=== PATIENT | female | born 1990 | race Caucasian/White ===

== ENCOUNTER 2017-04-12 09:02 | Emergency (ER) | payer MEDICAID ==
[2017-04-12] MEDS ORDERED: ACETAMINOPHEN 325 MG TABLET PO ONE (09:30)
[2017-04-12] MEDS ORDERED: ACETAMINOPHEN 325 MG TABLET ONE (10:22)
[2017-04-12 10:25] VITALS: BP 113/65
== END 2017-04-12 10:58 | disposition home or self-care (01) ==
LOC: ED 10:00
DX: O26.892 Other specified pregnancy related conditions, second trimester (principal); Z3A.24 24 weeks gestation of pregnancy; R07.89 Other chest pain; J45.909 Unspecified asthma, uncomplicated; O99.512 Diseases of the respiratory system complicating pregnancy, second trimester
CPT/HCPCS: 71010; 93005; 99284

== ENCOUNTER 2017-07-10 12:06 | Outpatient (CLI) | payer MEDICAID ==
[~2017-07-10] VITALS: Ht 154.9 cm; Wt 84.5 kg
[2017-07-10 12:34] VITALS: BP 123/70
== END 2017-07-10 14:40 | disposition home or self-care (01) ==
LOC: LDOP 12:06
PROVIDERS: ATTEND Student in an Organized Health Care Education/Training Program
DX: O36.5930 Maternal care for other known or suspected poor fetal growth, third trimester, not applicable or unspecified (principal); O32.1XX0 Maternal care for breech presentation, not applicable or unspecified; O99.333 Smoking (tobacco) complicating pregnancy, third trimester; F17.200 Nicotine dependence, unspecified, uncomplicated; Z3A.38 38 weeks gestation of pregnancy
CPT/HCPCS: 59025; 76805; 99201; G0463

== ENCOUNTER 2017-07-17 09:56 | Inpatient (IN) | payer MEDICAID ==
[~2017-07-17] VITALS: Ht 154.9 cm; Wt 84.5 kg
[2017-07-17] MEDS ORDERED: LACTATED RINGERS 1,000 ML IVBOLUS ONE (10:00)
[2017-07-17] MEDS ORDERED: SODIUM CITRATE/CITRIC ACID 30 ML UDC PO ONE (10:00)
[2017-07-17] MEDS ORDERED: METOCLOPRAMIDE 5 MG/ML, 2ML IV ONE (10:00)
[2017-07-17 10:06] VITALS: BP 133/72
[2017-07-17] MEDS ORDERED: PREN-3 PO (10:24)
[2017-07-17] MEDS ORDERED: FLU VACC QS2017-18 (36MOS+) UP/PF 0.5 ML IM-VACC ONE (10:30)
[2017-07-17] MEDS ORDERED: NEWBORN KIT ONE (10:46)
[2017-07-17 11:11] LABS: HEMATOCRIT 37.8 % (34.6-47.8); HEMOGLOBIN 12.8 g/dL (11.7-16.4)
[2017-07-17] MEDS: LACTATED RINGERS 1,000 ML IV SCH ×8 (11:21→22:20)
[2017-07-17] MEDS ORDERED: OXYTOCIN 30U/ 0.9% NaCL 500ML 500 ML ONE (11:46)
[2017-07-17] MEDS ORDERED: METOCLOPRAMIDE 5 MG/ML, 2ML ONE ×2 (11:46→12:19)
[2017-07-17] MEDS ORDERED: SODIUM CITRATE/CITRIC ACID 30 ML UDC ONE ×2 (11:46→12:19)
[2017-07-17] MEDS ORDERED: MEPERIDINE/PF 25MG/0.5ML IVPush PRN (12:00)
[2017-07-17] MEDS ORDERED: ONDANSETRON 2MG/ML, 2ML IVPush PRN (12:00)
[2017-07-17] MEDS ORDERED: OXYcodone 5 MG/5 ML ORAL.SOL UDC PO PRN (12:00)
[2017-07-17] MEDS ORDERED: EPHEDRINE 50 MG/ML, 1ML IVPush PRN (12:00)
[2017-07-17] MEDS ORDERED: MIDAZOLAM 1 MG/ML, 2ML IV PRN (12:00)
[2017-07-17] MEDS ORDERED: FENTANYL PF 100 MCG/2ML IV PRN (12:00)
[2017-07-17] MEDS ORDERED: LIDOCAINE 1%, 20ML ONE (12:19)
[2017-07-17] MEDS ORDERED: CEFAZOLIN 1,000 MG ONE (12:19)
[2017-07-17] MEDS: OXYTOCIN 30U/ 0.9% NaCL 500ML 500 ML IV SCH ×4 (12:20→22:20)
[2017-07-17] MEDS ORDERED: CARBOPROST TROMETHAMINE 250 MCG/ML, 1ML IM PRN (12:30)
[2017-07-17] MEDS ORDERED: OXYcodone/APAP 5/325MG TABLET PO PRN (12:30)
[2017-07-17] MEDS: KETOROLAC 30 MG/1 ML IV SCH ×2 (12:30→18:30)
[2017-07-17] MEDS ORDERED: SIMETHICONE 80 MG CHEW TAB PO PRN (12:30)
[2017-07-17] MEDS ORDERED: METHYLERGONOVINE 0.2 MG/ML IM PRN (12:30)
[2017-07-17] MEDS ORDERED: CALCIUM CARBONATE 500 MG TAB.CHEW PO PRN (12:30)
[2017-07-17] MEDS ORDERED: MISOPROSTOL 200 MCG TABLET PR PRN (12:30)
[2017-07-17] MEDS ORDERED: ONDANSETRON 2MG/ML, 2ML IV PRN (12:30)
[2017-07-17] MEDS ORDERED: IBUPROFEN 600 MG TABLET PO PRN (12:30)
[2017-07-17] MEDS: KETOROLAC 30 MG/1 ML IM SCH ×2 (14:00→20:00)
[2017-07-17] MEDS ORDERED: OXYcodone 5 MG/5 ML ORAL.SOL UDC ONE (14:40)
[2017-07-17] MEDS ORDERED: morphine SULFATE 10 MG/ML, 1ML ONE (14:40)
[2017-07-17] MEDS: morphine SULFATE 10 MG/ML, 1ML IV PRN ×3 (14:43→15:03)
[2017-07-17 16:00] VITALS: BP 118/71
[2017-07-17 16:35] VITALS: BP 126/71
[2017-07-17 17:05] VITALS: BP 115/69
[2017-07-17 17:37] LABS: HEMATOCRIT 40.4 % (34.6-47.8); HEMOGLOBIN 13.6 g/dL (11.7-16.4); WHITE BLOOD COUNT 20.8 x10^3/uL (3.4-10)
[2017-07-17 17:38] LABS: GIANT PLATELETS 2+
[2017-07-17] MEDS: OXYcodone/APAP 5/325MG TABLET PO PRN ×2 (18:51→23:15)
[2017-07-17 19:50] VITALS: BP 128/78
[2017-07-17 20:44] LABS: HEMATOCRIT 39.7 % (34.6-47.8); HEMOGLOBIN 13.3 g/dL (11.7-16.4); WHITE BLOOD COUNT 18.4 x10^3/uL (3.4-10)
[2017-07-17] MEDS: DOCUSATE 100 MG CAPSULE PO PRN (23:15)
[2017-07-17 23:27] VITALS: BP 127/82
[2017-07-17] MEDS ORDERED: OXYC-302 PO (23:59)
[2017-07-17] MEDS ORDERED: IBUP-1222 PO (23:59)
[2017-07-18] MEDS ORDERED: DOCU-131 PO
[2017-07-18] MEDS: KETOROLAC 30 MG/1 ML IV SCH ×3 (00:30→12:30)
[2017-07-18] MEDS: LACTATED RINGERS 1,000 ML IV SCH (04:20)
[2017-07-18 04:32] VITALS: BP 130/85
[2017-07-18] MEDS: OXYcodone/APAP 5/325MG TABLET PO PRN ×4 (04:32→17:17)
[2017-07-18 05:36] LABS: HEMATOCRIT 40.6 % (34.6-47.8); HEMOGLOBIN 13.3 g/dL (11.7-16.4); WHITE BLOOD COUNT 15.5 x10^3/uL (3.4-10)
[2017-07-18] MEDS: DOCUSATE 100 MG CAPSULE PO PRN (07:45)
[2017-07-18 08:10] VITALS: BP 129/79
[2017-07-18] MEDS: ALBUTEROL/IPRATROPIUM 2.5MG/0.5MG, 3 ML NPPB SCH ×2 (08:40→13:20)
[2017-07-18] MEDS ORDERED: PRENATAL VIT/IRON/FA 1 EACH TABLET PO SCH (09:00)
[2017-07-18 12:00] VITALS: BP 124/72
[2017-07-18] MEDS ORDERED: DIPH,PERTUSS(ACELL),TET VAC/PF NC IM-VACC ONE (16:30)
== END 2017-07-18 18:30 | disposition home or self-care (01) | DRG 766 ==
LOC: LDIP 09:56 → 2NW 15:45
PROVIDERS: ADMIT Student in an Organized Health Care Education/Training Program; ATTEND Student in an Organized Health Care Education/Training Program
PROC: 0UB70ZZ Excision of Bilateral Fallopian Tubes, Open Approach (ICD-10-PCS; principal; 2017-07-18)
PROC: 10D00Z1 Extraction of Products of Conception, Low, Open Approach (ICD-10-PCS; 2017-07-18)
DX: O32.1XX0 Maternal care for breech presentation, not applicable or unspecified (principal); K66.0 Peritoneal adhesions (postprocedural) (postinfection); Z37.0 Single live birth; O34.211 Maternal care for low transverse scar from previous cesarean delivery; Z30.2 Encounter for sterilization; Z3A.39 39 weeks gestation of pregnancy; Z87.891 Personal history of nicotine dependence
CPT/HCPCS: 36415; 71010; 85025; 86850; 86900; 90715; 94640; J0690; J3490; J7620; J2270; J2590; J2765; J7120

== ENCOUNTER 2020-03-29 08:37 | Emergency (ER) | payer MEDICAID ==
[~2020-03-29] VITALS: Ht 154.9 cm; Wt 78.5 kg
[~2020-03-29 08:37] MED LIST: DOCU-131 PO; IBUP-1222 PO; OXYC-302 PO; PREN-3 PO
[2020-03-29 08:40] VITALS: BP 122/83
--- NOTE | 2020-03-29 08:56 | NUR ---
denies numbness/tingling down legs, painful to walk and sit, is standing. given ice pack. as
[2020-03-29] MEDS ORDERED: KETOROLAC 30 MG/1 ML IM ONE (09:30)
[2020-03-29] MEDS ORDERED: HYDROcodone/APAP 5/325 TABLET PO ONE (09:30)
[2020-03-29] MEDS ORDERED: HYDROcodone/APAP 5/325 TABLET ONE (09:36)
[2020-03-29] MEDS ORDERED: KETOROLAC 30 MG/1 ML ONE (09:37)
== END 2020-03-29 10:08 | disposition home or self-care (01) ==
LOC: ED 09:27
DX: S30.0XXA Contusion of lower back and pelvis, initial encounter (principal); W01.0XXA Fall on same level from slipping, tripping and stumbling without subsequent striking against object, initial encounter; Y93.89 Activity, other specified; Y92.098 Other place in other non-institutional residence as the place of occurrence of the external cause; Y99.8 Other external cause status
CPT/HCPCS: 72220; 96372; 99283; J1885

== ENCOUNTER 2020-04-20 15:35 | Emergency (ER) | payer MEDICAID ==
[~2020-04-20] VITALS: Ht 154.9 cm; Wt 76.3 kg
--- NOTE | 2020-04-20 16:49 | NUR ---
Pt to room from lobby.
--- NOTE | 2020-04-20 18:27 | NUR ---
C/O SORE THROAT, STARTED THIS AM. + COUGH. DENIES FEVER, SOB, RESP HX. NO MED TAKEN FOR SX. PT REPORTS SHE'S NOT BEEN TESTED FOR COVID, HAS NOT HAD ANY KNOWN CONTACT W/ ANYONE W/ COVID. STATES SHE WORKS AT A [employer] AND INTERACTS W/ THE GENERAL PUBLIC
[2020-04-20 18:32] VITALS: BP 130/91
== END 2020-04-20 18:44 | disposition home or self-care (01) ==
LOC: ED 16:00
DX: J20.8 Acute bronchitis due to other specified organisms (principal); J02.8 Acute pharyngitis due to other specified organisms; B97.89 Other viral agents as the cause of diseases classified elsewhere
CPT/HCPCS: 71045; 99283

== ENCOUNTER 2020-05-25 12:39 | Emergency (ER) | payer MEDICAID ==
[~2020-05-25] VITALS: Ht 154.9 cm; Wt 75.3 kg
--- NOTE | 2020-05-25 14:15 | NUR ---
[employer]: PT TO ROOM VIA WHEELCHAIR AT THIS TIME. NATACHA
[2020-05-25 14:45] VITALS: BP 125/73
[2020-05-25 14:55] LABS: MICROSCOPIC AUTO
--- NOTE | 2020-05-25 15:01 | NUR ---
PT UPRIGHT ON GURNEY AWAKE & "MORE COMFORTABLE NOW THAT I'M LAYING DOWN & MORE RELAXED", RESPONDS APPROP TO STAFF, NAD, COMFORT MEASURES PROVIDED, AT BS, CALL LIGHT WITHIN REACH.
[2020-05-25 15:05] LABS: BASOPHILS # (AUTO) 0.12 x10^3/uL (0-0.1); BASOPHILS % (AUTO) 1 % (0-1); EOSINOPHILS # (AUTO) 0.17 x10^3/uL (0-0.4); EOSINOPHILS % (AUTO) 2 % (1-7); LYMPHOCYTES % (AUTO) 17 % (22-44); MD NO; MEAN CORPUSCULAR HEMOGLOBIN 31.4 pg (27.0-34.8); MEAN CORPUSCULAR HGB CONC 32.6 g/dL (32.4-35.8); MEAN CORPUSCULAR VOLUME 96.4 fL (80-100); MEAN PLATELET VOLUME 11.3 fL (7.4-10.4); MONOCYTES # (AUTO) 0.89 x10^3/uL (0.2-0.8); MONOCYTES % (AUTO) 9 % (2-9); NEUTROPHILS % (AUTO) 71 % (42-75); PLATELET COUNT 176 x10^3/uL (130-400); RED BLOOD COUNT 5.03 x10^6/uL (3.82-5.3); RED CELL DISTRIBUTION WIDTH 13.4 % (9.6-15.2)
[2020-05-25 15:12] LABS: ALBUMIN 3.8 g/dL (3.4-5.0); ANION GAP 4 mmol/L (5-15); CALCIUM 8.6 mg/dL (8.5-10.1); CHLORIDE 108 mmol/L (98-107)
--- NOTE | 2020-05-25 16:21 | NUR ---
Patient given discharge instructions and Rx, they have confirmed that they understand the instructions. Patient ambulatory with steady gait.
== END 2020-05-25 16:23 | disposition home or self-care (01) ==
LOC: ED 15:52
DX: N30.00 Acute cystitis without hematuria (principal); N10 Acute pyelonephritis; J45.909 Unspecified asthma, uncomplicated; F17.210 Nicotine dependence, cigarettes, uncomplicated
CPT/HCPCS: 36415; 71045; 80048; 81001; 82040; 84702; 85025; 87077; 87086; 87186; 99284; 99406

== ENCOUNTER 2021-01-15 21:51 | Emergency (ER) | payer MEDICAID ==
[~2021-01-15] VITALS: Ht 154.9 cm; Wt 76.2 kg
[~2021-01-15 21:51] MED LIST changes: -OXYC-302 PO; +OXYC1TAB14 PO
[2021-01-15] MEDS ORDERED: SODIUM CHLORIDE FLUSH 10ML SYR IVF ONE (23:00)
--- NOTE | 2021-01-15 23:15 | NUR ---
pt back to this rns room. states she came in after having a small bulge on her right lower quadrant of her abdomen. Pt states its been there x2 months, but has slowly been getting larger. reports she first noticed it after her third . pt nad, denies additional questions or needs, resting on gurney, placed on spo2/bp monitoring, SO at bs, provided warm blankets for comfort, bed in lowest, rails engaged, call light on lap, wctm.
[2021-01-15 23:28] LABS: BASOPHILS % (AUTO) 1 % (0-1); EOSINOPHILS % (AUTO) 1 % (1-7); LYMPHOCYTES % (AUTO) 14 % (22-44); MEAN CORPUSCULAR HEMOGLOBIN 31.7 pg (27.0-34.8); MEAN CORPUSCULAR HGB CONC 33.6 g/dL (32.4-35.8); MEAN PLATELET VOLUME 10.4 fL (7.4-10.4); MONOCYTES % (AUTO) 8 % (2-9); NEUTROPHILS % (AUTO) 76 % (42-75); PLATELET COUNT 202 x10^3/uL (130-400)
[2021-01-15 23:32] LABS: ALANINE AMINOTRANSFERASE 34 U/L (12-78); ALBUMIN 4.3 g/dL (3.4-5.0); ANION GAP 4 mmol/L (5-15); CALCIUM 9.3 mg/dL (8.5-10.1); CHLORIDE 104 mmol/L (98-107); CREATININE 0.87 mg/dL (0.55-1.02)
[2021-01-15 23:36] LABS: ALKALINE PHOSPHATASE 89 U/L (45-117); BILIRUBIN,TOTAL 0.5 mg/dL (0.2-1.0); TOTAL PROTEIN 8.1 g/dL (6.4-8.2)
[2021-01-15 23:55] LABS: MD SCAN
--- NOTE | 2021-01-16 00:08 | NUR ---
pt in us at this time.
--- NOTE | 2021-01-16 01:27 | NUR ---
Patient given discharge instructions and they have confirmed that they understand the instructions. Patient ambulatory with steady gait. NAD, DENIES ADDITIONAL QUESTIONS OR NEEDS, NO PERSONAL BELONGINGS LEFT IN ROOM AFTER DC
[2021-01-16 01:31] VITALS: BP 131/86
== END 2021-01-16 01:33 | disposition home or self-care (01) ==
LOC: ED 01-16 00:27
DX: K43.9 Ventral hernia without obstruction or gangrene (principal); R10.31 Right lower quadrant pain; J45.909 Unspecified asthma, uncomplicated; F17.200 Nicotine dependence, unspecified, uncomplicated
CPT/HCPCS: 36415; 76705; 80053; 84703; 85025; 99284

== ENCOUNTER 2021-07-05 10:05 | Emergency (ER) | payer MEDICAID ==
[~2021-07-05] VITALS: Ht 154.9 cm; Wt 72.1 kg
[~2021-07-05 10:05] MED LIST changes: +OXYC1TAB12 PO; -OXYC1TAB14 PO
[2021-07-05 10:15] VITALS: BP 131/80
[2021-07-05] MEDS ORDERED: DIPH,PERTUSS(ACELL),TET VAC/PF 0.5 ML IM-VACC ONE (10:30)
--- NOTE | 2021-07-05 12:51 | NUR ---
Patient to room from lobby
--- NOTE | 2021-07-05 13:58 | NUR ---
Pt had Tdap in 2015 in the ER.
[2021-07-05] MEDS ORDERED: BACITRACIN ZINC OINT 500U/GM, 0.9 GM ONE (14:11)
== END 2021-07-05 14:25 | disposition home or self-care (01) ==
LOC: ED 10:23
DX: S62.627A Displaced fracture of middle phalanx of left little finger, initial encounter for closed fracture (principal); S00.81XA Abrasion of other part of head, initial encounter; J45.909 Unspecified asthma, uncomplicated; F17.200 Nicotine dependence, unspecified, uncomplicated; W01.0XXA Fall on same level from slipping, tripping and stumbling without subsequent striking against object, initial encounter; Y93.89 Activity, other specified; Y92.89 Other specified places as the place of occurrence of the external cause; Y99.8 Other external cause status
CPT/HCPCS: 29130; 99283